=== PATIENT | male | born 1975 | race African-American/Black ===

== ENCOUNTER 2018-07-14 17:55 | Emergency (ER) | payer OTHER ==
[~2018-07-14] VITALS: Ht 182.9 cm; Wt 86.2 kg
[2018-07-14] MEDS ORDERED: SULFAMETH/TRIMETH 800/160 MG TABLET PO ONE (19:30)
[2018-07-14] MEDS ORDERED: IBUPROFEN 600 MG TABLET PO ONE (19:30)
[2018-07-14] MEDS ORDERED: LIDOCAINE 1%-EPI 1:100,000 20 ML VIAL TP ONE (19:30)
[2018-07-14] MEDS ORDERED: IBUPROFEN 600 MG TABLET ONE (19:40)
[2018-07-14] MEDS ORDERED: SULFAMETH/TRIMETH 800/160 MG TABLET ONE (19:41)
--- NOTE | 2018-07-14 19:45 | NUR ---
Patient discharged to home in stable conditon. Written and verbal after care instructions given. Patient verbalizes understanding of instructions. Pt ambulated out of ER in steady gait with family member. All belongings with pt. VSS. NAD noted.
[2018-07-14 19:46] VITALS: BP 111/69
== END 2018-07-14 19:49 | disposition home or self-care (01) ==
LOC: ER 17:57
DX: L02.31 Cutaneous abscess of buttock (principal)
CPT/HCPCS: 10060; 99283; A4663; J3490

== ENCOUNTER 2018-07-22 18:52 | Emergency (ER) | payer OTHER ==
[~2018-07-22] VITALS: Ht 182.9 cm; Wt 83.9 kg
--- NOTE | 2018-07-22 18:56 | NUR ---
PT CALLED IN FOR TRIAGE - STATED NOT READY AT THIS TIME - NOT IN WAITING ROOM.
--- NOTE | 2018-07-22 19:30 | NUR ---
Pt being seen by MD in room.
[2018-07-22 20:04] VITALS: BP 112/47
== END 2018-07-22 20:05 | disposition home or self-care (01) ==
LOC: ER 18:54
DX: L02.31 Cutaneous abscess of buttock (principal); Z48.01 Encounter for change or removal of surgical wound dressing
CPT/HCPCS: A4663